=== PATIENT | male | born 1960 | race Caucasian/White ===

== ENCOUNTER 2019-02-14 18:33 | Emergency (ER) | payer OTHER ==
[~2019-02-14] VITALS: Ht 180.3 cm; Wt 72.6 kg
[2019-02-14] MEDS ORDERED: EPIPEN 2-P0.3 MG/0.3 IJ (21:13)
== END 2019-02-14 21:31 | disposition home or self-care (01) ==
LOC: ED 18:33
DX: T63.441A Toxic effect of venom of bees, accidental (unintentional), initial encounter (principal); L29.9 Pruritus, unspecified; Z91.030 Bee allergy status; Y92.89 Other specified places as the place of occurrence of the external cause